=== PATIENT | male | born 1960 | race Caucasian/White ===

== ENCOUNTER 2025-02-13 07:04 | Day surgery (SDC) | payer BC, SELFPAY ==
[2025-02-13] VITALS (14 sets, daily range): BP systolic 100–115; BP diastolic 59–74; PULSE 46–100; RESP 10–21; TEMP 36.3–36.6; O2SAT 92–100; BMI 24.3
[2025-02-13] MEDS: Lactated Ringers 1,000 ML 80 ML IV (07:44)
--- NOTE | 2025-02-13 08:10 | W.ANESPRE ---
General Info Date of Service Date Performed: 02/13/25 Height: 5 ft 8 in Weight: 72.5 kg Body Mass Index (BMI): 24.3 Surgical Procedure: Operation Date: 02/13/25 08:40 Proposed Procedure Side Surgeon p Cystoscopy/Retrograde/ Removal of Stent Left Mohan Millan MD Meds Allergies and Home Medications Allergies Allergy/AdvReac Type Severity Reaction Status Date / Time No Known Allergies Allergy Verified 02/13/25 07:13 Home Medication ?Medication ?Instructions ?Recorded Unknown [No Known Home Meds] 02/10/25 Current Visit Medications: Current Medications Generic Name Dose Route Start Last Admin Trade Name Freq PRN Reason Stop Dose Admin Ringer's Solution 1,000 mls @ 80 mls/hr 02/13/25 06:00 02/13/25 07:44 IV 02/13/25 23:59 80 mls/hr INFUSION RUPERT Administration Cefazolin Sodium/Dextrose 2 gm in 50 mls @ 100 mls/hr 02/13/25 06:00 Ancef Duplex IVPB 02/13/25 23:59 PREOP RUPERT IV Miscellaneous Supplies 1 each 02/13/25 06:00 Iv Access IV 02/13/25 23:59 DIRECTED RUPERT Sodium Chloride 0 ml 02/13/25 06:00 Normal Saline Flush 10 Ml Syr IV 02/13/25 23:59 PRN PRN Sodium Chloride 0 ml 02/13/25 06:00 Normal Saline 10 Ml Vial IJ 02/13/25 23:59 DIRECTED PRN Sterile Water 0 ml 02/13/25 06:00 Water,Injection,Sterile 10 Ml Vial IJ 02/13/25 23:59 DIRECTED PRN PFSH Surgical History Surgical History History of cystoscopy Hx of arthroscopic knee surgery Hx of appendectomy Tobacco Smoking/Tobacco Use Status: Never Smokeless tobacco user: chewing tobacco Alcohol Alcohol Intake: current Alcohol intake frequency: holidays/special occasions only Substance Use Substance use: Never Substance use type: does not use Vital Signs and Lab Results Vital Signs Most Recent Vital Signs in EMR: Most Recent Vital Signs Temp Pulse Resp BP Pulse Ox 36.6 C 56 L 16 105/74 99 02/13/25 07:14 02/13/25 07:14 02/13/25 07:14 02/13/25 07:14 02/13/25 07:14 Anesthesia Assessment and Plan Anesthesia History Personal History: No History of Anesthesia Complications Family History: No Family History of Anesthesia Complications Exercise Tolerance Exercise Tolerance: Metabolic Equivalents>4 Pertinent Negatives Pertinent Negatives: No Symptoms of GERD, No Major Cardiovascular Symptoms or Complaints, No Major Pulmonary Symptoms or Complaints and No History of CVA/TIA Cardiac & Pulmonary Exam Cardiac Exam: Normal S1/S2 Heart Sounds Pulmonary Exam: Clear Bilateral Breath Sounds Implantable Cardiac Device Does patient have a Pacemaker or an ICD?: No Airway Exam Known Difficult Airway: No Mallampati Class: 1 Mouth Opening: Normal (> 3cm) Thyromental Distance: Greater than 3 cm Neck Range of Motion: Full ROM Neck Circumference: Normal Teeth Condition: Normal Dentition ASA Classification ASA Score: ASA 2 Emergency Case?: No NPO Status NPO Status: NPO Clears >2 hours, Solids >8 hours Anesthesia Plan Resuscitation Status: Full Code Anesthesia Technique: General Anesthesia Airway Planned: Natural Airway Monitors Used: Standard Monitors
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
--- NOTE | 2025-02-13 08:30 | DI.RAD_ITS ---
Exam(s) XR RETROGRADE IN OR EXAM: XR RETROGRADE IN OR CLINICAL HISTORY: Kidney laceration TECHNIQUE: 2D and realtime digital imaging was performed. CONTRAST MATERIAL: Refer to procedure report. COMPARISON: No exams were available for comparison FINDINGS: Fluoroscopy was provided for Dr. Millan during the performance of a retrograde evaluation of the renal collecting system. Please refer to the procedure report for complete details. Ka,r=1.98 mGy IMPRESSION: RADIATION DOSE DELIVERED: 0.0 0.0 0
[2025-02-13] MEDS: ceFAZolin 2 GM/50 ML BAG IVPB (08:57)
[2025-02-13] MEDS: Lidocaine 2% Jelly 11 ML SYR (09:21)
[2025-02-13] MEDS: Omnipaque 300 MG/ML 50 ML BTL (09:29)
--- NOTE | 2025-02-13 09:35 | W.PM.DSUDISC ---
Date of service: 02/13/25 Discharge Plan Disposition Patient Disposition: Home Condition: Stable Discharge Details Reason For Visit: cystoscopy with stent removal Attending Provider: Mohan Millan Primary Care Provider: Huber Kuhn Home Meds and New Rx's Prescriptions: No Action No Known Home Meds Discharge Instructions Additional Instructions: followup 6 weeks Stand Alone Forms: Anesthesia Discharge Inst., [facility], Selvin Yoo ([facility]) Activity:: no strenuous activity for 6 to 8 weeks (3 months after initial injury) Shower/Bathe:: 24 hours Diet:: As Tolerated Discharge Orders Discharge Orders: Discharge Order (Routine); Ordered 02/13/25 Ordered By: Mohan Millan DS: Diagnosis Discharge Diagnosis (1) Kidney laceration: Status: Acute
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
[2025-02-13] MEDS: Phenazopyridine 200 MG TAB PO (10:29)
--- NOTE | 2025-02-13 10:47 | W.ANESPOSTOP ---
Postoperative Evaluation Date, Time and Location Date Performed: 02/13/25 Time Performed: 10:47 Patient Location: Day Surgery Unit Vital Signs Most Recent Imported Vital Signs: Most Recent Vital Signs Temp Pulse Resp BP Pulse Ox 36.3 C L 46 L 16 115/74 100 02/13/25 10:36 02/13/25 10:36 02/13/25 10:36 02/13/25 10:36 02/13/25 10:36 Pain Score Most Recent Pain Score: Most Recent Pain Score Pain Level 0 02/13/25 10:36 Assessment Mental Status: Awake (Alert & Oriented to Patient Baseline) Airway and Respiratory Function: Patent airway with normal (patient baseline) respiratory exam Cardiovascular Function: Hemodynamically Stable Hydration Status: Adequately Hydrated Nausea & Vomiting: No Nausea or Vomiting Pain: Pt. Denies Any Pain Peripheral Nerve Block: Patient did not receive a nerve block
== END 2025-02-13 10:48 | disposition home or self-care (01) ==
PROVIDERS: PCP Family Medicine; Visit Provider Urology
PROC: (CPT 74450; principal; 2025-02-13 08:30)
DX: S37.032A Laceration of left kidney, unspecified degree, initial encounter (principal); X58.XXXA Exposure to other specified factors, initial encounter
CPT/HCPCS: 52005; 74420; J0690; J1100; J1885; J2250; J2405; J2704; Q9967